=== PATIENT | female | born 1935 | race Caucasian/White ===

== ENCOUNTER 2017-01-20 08:01 | Outpatient (CLI) | payer MEDICARE, OTHER ==
[~2017-01-20] VITALS: Ht 158.8 cm; Wt 83.9 kg
[2017-01-20] VITALS (11 sets, daily range): BP systolic 139–163; BP diastolic 67–79
[~2017-01-20 08:01] MED LIST: AMIT10TA PO; ASPI-482 PO; ATOR10TA PO; DESL5TAB PO; DILT180C2 PO; LEVO100T PO; LOSA25TA4 PO; METF500T4 PO; METO100T11 PO; MULT-245 PO; SPIR25TA3 PO; UBID1CAP23 PO
[2017-01-20 08:27] LABS: BASO % 0 % (0-3); EOS % 2 % (0-3); HEMOGLOBIN 13.9 g/dL (12.0-15.5); LYMPH # 2.6 x10^3/uL (1.0-4.8); LYMPH % 34 % (24-48); MEAN CORPUSCULAR HEMOGLOBIN 28 pg (25-35); MEAN CORPUSCULAR HGB CONC 34 g/dL (31-37); MEAN CORPUSCULAR VOLUME 82 fL (79-100); MONO % 14 % (0-9); NEUT % 49 % (31-73); PLATELET COUNT 256 x10^3/uL (140-400); RED CELL DISTRIBUTION WIDTH 14.7 % (11.5-14.5); WHITE BLOOD COUNT 7.7 x10^3/uL (4.0-11.0)
[2017-01-20] MEDS ORDERED: TRAM50TA PO (08:29)
[2017-01-20] MEDS ORDERED: DIAZ2TAB PO (08:29)
[2017-01-20] MEDS ORDERED: ACET650T10 PO (08:29)
[2017-01-20] MEDS ORDERED: GADOBUTROL 7.5 MMOL/7.5 ML VIAL ONE (08:35)
[2017-01-20] MEDS ORDERED: LIDOCAINE 1% / SOD BICARB 8.4% 20 ML VIAL. IJ ONE ×2 (08:35→09:45)
[2017-01-20 08:39] LABS: CALCIUM 9.4 mg/dL (8.5-10.1); CREATININE 0.9 mg/dL (0.6-1.0); GFR 60.1; INR 1.1 (0.8-1.1); POTASSIUM 4.4 mmol/L (3.5-5.1); PROTHROMBIN TIME PATIENT 13.2 SEC (11.7-14.0)
[2017-01-20 08:45] LABS: ALBUMIN 3.8 g/dL (3.4-5.0); ALBUMIN/GLOBULIN RATIO 0.9 (1.0-1.7); TOTAL BILIRUBIN 0.5 mg/dL (0.2-1.0); TOTAL PROTEIN 8.1 g/dL (6.4-8.2)
[2017-01-20] MEDS ORDERED: MIDAZOLAM HCL/PF 2 MG/2 ML VIAL. ONE (09:26)
[2017-01-20] MEDS ORDERED: GADOBUTROL 7.5 MMOL/7.5 ML VIAL IV ONE (09:45)
[2017-01-20] MEDS ORDERED: MIDAZOLAM HCL/PF 2 MG/2 ML VIAL. IV ONE (09:45)
--- NOTE | 2017-01-20 10:26 | PDOC1 ---
History and Physical Date of Procedure Date of Admission 01/20/[address] guided right renal cyst aspiration Indication Indication 81 YO female with right renal cyst, which, by history is enlarging. CT guided aspiration/bx has been requested by PCP to exclude cystic renal neoplasm. Past Medical History Past Medical History See Nursing Pre procedure PMH Past Surgical History Past Surgical History See Nursing Pre procedure PSH Current Medications Current Medications Current Medications Cefazolin Sodium 50 ml @ 100 mls/hr 1X ONCE IV ; Start 01/20/17 at 08:15; Stop 01/20/17 at 08:44; Status DC Gadobutrol (Gadavist) 7.5 mmol STK-MED ONCE .ROUTE ; Start 01/20/17 at 08:35; Stop 01/20/17 at 08:36; Status DC Lidocaine/Sodium Bicarbonate (Buffered Lidocaine 1%) 20 ml STK-MED ONCE IJ ; Start 01/20/17 at 08:35; Stop 01/20/17 at 08:36; Status DC Midazolam HCl (Versed) 2 mg STK-MED ONCE .ROUTE ; Start 01/20/17 at 09:26; Stop 01/20/17 at 09:27; Status DC Lidocaine/Sodium Bicarbonate (Buffered Lidocaine 1%) 20 ml 1X ONCE IJ Last administered on 01/20/17 10:12; Start 01/20/17 at 09:45; Stop 01/20/17 at 09:46; Status DC Midazolam HCl (Versed) 2 mg 1X ONCE IV Last administered on 01/20/17t 10:12; Start 01/20/17 at 09:45; Stop 01/20/17 at 09:46; Status DC Gadobutrol (Gadavist) 7.5 mmol 1X ONCE IV Last administered on 01/20/17 10:12 ; Start 01/20/17 at 09:45; Stop 01/20/17 at 09:46; Status DC Active Scripts Active Reported Arthritis Pain Reliever (Acetaminophen) 650 Mg Tablet.er 650 Mg PO PRN Valium (Diazepam) 2 Mg Tablet 2 Mg PO PRN PRN Tramadol Hcl 50 Mg Tablet 25 Mg PO DAILY PRN Co Q-10 100 Mg Softgel (Ubidecarenone/Vit E Acetate) 1 Each Capsule 1 Each PO Multi Vitamin Daily (Multivitamin) 1 Each Tablet 1 Each PO Aspir 81 (Aspirin) 81 Mg Tablet.dr 162 Mg PO DAILY Losartan Potassium 25 Mg Tablet 25 Mg PO DAILY PRN Cardizem Cd (Diltiazem Hcl) 180 Mg Cap.er.24h 180 Mg PO DAILY Clarinex (Desloratadine) 5 Mg Tablet 5 Mg PO DAILY Metformin Hcl 500 Mg Tablet 500 Mg PO BIDWMEALS Amitriptyline Hcl 10 Mg Tablet 5 Mg PO HS Lipitor (Atorvastatin Calcium) 10 Mg Tablet 10 Mg PO DAILY Synthroid (Levothyroxine Sodium) 100 Mcg Tablet 100 Mcg PO DAILYAC Metoprolol Succinate ( Xl ) (Metoprolol Succinate) 100 Mg Tab.er.24h 50 Mg PO DAILY Allergies Allergies: Coded Allergies: levofloxacin (Unverified Allergy, Severe, ANAPHYLAXIS, 01/20/17) codeine (Verified Allergy, Unknown, 01/20/17) iodine (Unverified Adverse Reaction, Mild, anxiety, 01/20/17) Physical Exam Vital Signs Vital Signs Date Time Temp Pulse Resp B/P (MAP) Pulse Ox O2 Delivery O2 Flow Rate FiO2 01/20/17 10:07 58 18 100 Room Air 01/20/17 10:04 2.0 01/20/17 09:08 97.7 144/71 (95) 97.7 Lungs: Clear to auscultation Heart: Regular rate Psych/Mental Status: Mental status NL Diagnostic Data/Imaging Images [facility] CT studies from 07/03/16 and 12/25/16 personally reviewed. Large right renal cyst confirmed, with smooth, imperceptible howard without nodularity or calcification and with homogeneous hypodensity. Only minimal if any increase in size over 6 months. Assessment Assessment Large right renal cyst, with imaging characteristics most c/w simple, benign cyst. Given h/o fairly rapid enlargement, image guided sampling has been requested by PCP to exclude cystic neoplasm. Problems: Plan Plan CT guided right renal cyst aspiration---cyst fluid to cytology. No mural irregularity/nodularity/calcification to indicate cyst wall bx. WILLIAMS DUVAL MD Jan 20, 2017 10:26
--- NOTE | 2017-01-20 10:47 | PDOC ---
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 However, by history, this lesion has shown significant enlargement---therefore cyst aspiration/bx has been requested by PCP to exclude cystic neoplasm. Post-Procedure Diagnosis Post-Procedure Diagnosis Cyst aspiration/contrast injection suggests simple cyst (smooth imperceptible howard, without mural nodularity/calcification, and with homogeneous hypodensity) . No communication to right renal collecting system. Procedure Performed Procedure Performed CT guided right renal cyst aspiration, with gadolinium contrast injection. Type of Anesthesia Type of Anesthesia Local + IV versed anxiolysis----no moderate sedation. Estimated Blood Loss EBL: Trace Specimens Specimans 100 cc straw-clear right renal cyst fluid aspirated---sample to lab for cytology. Condition of Patient Condition of Patient Stable. No apparent compication. Disposition Disposition Discharge home from [facility] post 1 hr recovery, if no problems. F/u with referring PCP. Full report to follow. WILLIAMS DUVAL MD Jan 20, 2017 10:47
--- NOTE | 2017-01-20 16:21 | RAD ---
CT-guided aspiration of right renal cyst Indication: 81-year-old female with an asymptomatic large right renal cyst which has, by history, shown significant recent interval increase in size. Image guided aspiration/biopsy has been requested by primary care physician to exclude the possibility of cystic neoplasm. Anesthesia: Local plus IV Versed anxiolysis only. No moderate sedation was utilized. Consent: The procedure was explained in its entirety to the patient and/or the patient's designated sales training representative by a member of the treatment team. This included a discussion of risks and benefits and acceptable alternatives to the procedure, as well as expected consequences of no treatment at all. Discussion of risks included, but was not limited to, those that are most frequent and those that are rare, but possibly severe or life-threatening, as well as the possibility of unforeseen complications. Procedure: Informed consent was obtained from the patient. She was placed supine on the CT scanner. Preliminary noncontrast CT images were obtained through kidneys. Those images confirmed the presence of a well-defined, homogeneously hypodense, cyst projecting laterally from mid region right kidney. The cyst has thin, imperceptible howard, without mural nodularity and without mural calcification. When compared to the previous [facility] CT done 07/03/2016, there has been little, if any interval increase in size in the cyst, which measures approximately 7 cm in maximum diameter. A skin site suitable for CT-guided right renal cyst aspiration was selected and marked along the lateral aspect of mid right abdomen. That area was prepped and draped in the usual sterile fashion. 1 mg Versed was given IV, for anxiolysis. Using aseptic technique, local anesthesia, and CT guidance, a small micropuncture sheath was successfully introduced into the right renal cyst. Approximately 75 cc of straw-clear cyst fluid was aspirated, a sample which was submitted to cytology. 50 cc of very dilute gadolinium was then injected through the micropuncture sheath into the right renal cyst, and CT images were repeated. Those images revealed homogeneous opacification of the renal cyst, without demonstration of mural thickening or nodularity. There was no demonstration of gadolinium extending from the renal cyst into right renal collecting system. Approximately 50 cc of cyst fluid and a dilute gadolinium was then aspirated. This resulted in partial decompression of the renal cyst. Complete cyst aspiration was not considered mandatory in this asymptomatic lesion. Patient tolerated the procedure well without apparent complication. Impression: Successful, uneventful CT-guided aspiration of a right renal cyst, as described. Although, by imaging criteria, this lesion appears to represent a simple, benign cyst, aspirated fluid was submitted to cytology. Injection of dilute gadolinium into the cyst failed to demonstrate communication with right renal collecting system. PQRS Compliance Statement: One or more of the following individualized dose reduction techniques was utilized for this procedure: 1. Automated exposure control. 2. Adjustment of MA and/or KV according to patient size. 3. Iterative reconstruction technique.
--- NOTE | 2017-01-21 10:32 | PATHOLOGY ---
CYTOPATHOLOGY REPORT CLINICAL HISTORY: Right renal cyst. SPECIMEN(S) RECEIVED: A.Needle aspiration, Right renal cyst FINAL DIAGNOSIS: Fine needle aspiration, right renal cyst: - Consistent with cystic contents. Poorly cellular specimen revealing few scattered histiocytes and some bacteria. PATHOLOGIST: Hermelindo Kong M.D. REPORT ELECTRONICALLY SIGNED BY: Hermelindo Kong M.D. DATE/TIME: 01/21/2017 10:31 GROSS PATHOLOGY: A. Needle aspiration, Right renal cyst: The specimen is labeled "Luna Hernandez". Thirty-five mL of clear yellow fluid unfixed from the needle rinse is also submitted and one ThinPrep slide and a cell block were prepared from this material. (clt 01.20.2017) INFANTRY ASSAULTMAN(S): SHAHRIAR Mcbride([facility]) INITIAL CPT CODE(S): A; 19356, 87426 Professional services performed [place] [facility] [address] Technical services performed by [facility] at [address] [place] [address], [address], [place] [address]. PATIENT: LUNA HERNANDEZ /AGE: 702/27/1935 (Age: 81) SEX: F PATIENT #: [id number] ALT CASE #: SPECIMEN COLLECTION DATE: 01/20/2017 SPECIMEN RECEIVED DATE: 01/20/[address] [facility] [address] [place] [address], [address] [place] [address] PHONE: [phone] DIRECTOR: Ron Barrera M.D. * * * END OF REPORT * * *
== END 2017-01-20 11:20 | disposition home or self-care (01) ==
LOC: INTRAD 08:01
PROVIDERS: ATTEND Family Medicine
DX: N28.1 Cyst of kidney, acquired (principal); I48.91 Unspecified atrial fibrillation; E11.9 Type 2 diabetes mellitus without complications; Z98.41 Cataract extraction status, right eye; Z98.42 Cataract extraction status, left eye; E78.00 Pure hypercholesterolemia, unspecified; Z90.49 Acquired absence of other specified parts of digestive tract; Z90.710 Acquired absence of both cervix and uterus; Z96.653 Presence of artificial knee joint, bilateral
CPT/HCPCS: 10022; 36415; 77012; 80053; 85027; 85610; 88173; 88305; C1892; J2250; A9585

== ENCOUNTER → 2017-07-24 | Outpatient (CLI) | payer MEDICARE, OTHER ==
[2017-01-20 11:05] VITALS: BP 147/76
[~2017-07-24] MED LIST changes: +ACET650T10 PO; +DIAZ2TAB PO; +METO-247 PO; -METO100T11 PO; +TRAM50TA PO; -UBID1CAP23 PO; +UBID1CAP41 PO
--- NOTE | 2017-07-24 16:46 | KCIC ---
MRI of the thoracic spine without contrast 07/24/2017 CLINICAL HISTORY: Chronic mid back pain. TECHNIQUE: Unenhanced T1-weighted, T2-weighted and inversion recovery sagittal and T1-weighted and T2-weighted axial images of the thoracic spine were obtained. FINDINGS: Mild to moderate S-shaped curvature of the thoracolumbar spine is seen. Degenerative signal changes are seen involving all the disks of the thoracic spine. Degenerative signal changes are seen within the marrow surrounding these discs. The thoracic spinal cord is normal in morphology, position, and signal characteristics. Degenerative changes are seen involving the thoracic disc spaces consisting of minimal to mild generalized disc bulges along with small superimposed focal disc protrusions and degenerative changes involving the facet joints. These findings do not result in areas of significant central spinal canal or neural foraminal stenosis. IMPRESSION: Degenerative changes are seen involving the thoracic spine. These findings do not result in areas of significant central spinal canal or neural foraminal stenosis. Electronically signed by: Jason Fontenot MD (07/24/2017 4:43 PM) [facility]-[id number]
--- NOTE | 2017-07-24 16:57 | KCIC ---
MRI of the lumbar spine without contrast 07/24/2017 CLINICAL HISTORY: Chronic low back pain which intermittently radiates to the right lower quadrant and left leg. TECHNIQUE: Unenhanced T1-weighted and T2-weighted sagittal and axial and inversion recovery sagittal images of the lumbar spine were obtained. FINDINGS: Comparison study is dated 06/25/2016. The patient appears to have transitional vertebral anatomy. For the purposes of this dictation the transitional vertebral segment will be referred to by the letter T. A hypoplastic disc is seen at T-S1. Mild to moderate S-shaped curvature of the thoracolumbar spine is seen. Mild anterolisthesis of L5 in relation to T is noted. Degenerative signal changes are seen involving all of the disks of the lumbar spine. Degenerative signal changes are seen within the marrow surrounding these discs. Loss of height of the L3-4, L4-5 and L5-T discs is noted. The conus medullaris is normal morphology, position, and signal characteristics. At the L1-2 and L2-3 disc spaces there are mild to moderate generalized disc bulges. Degenerative changes are seen involving the facet joints bilaterally. There is mild to moderate ligamentum flavum hypertrophy bilaterally. These findings when combined do not result in significant central spinal canal or neural foraminal stenosis. At the L3-4 disc space there is a mild to moderate generalized disc bulge. This is eccentric to the right. Degenerative changes are seen involving the facet joints bilaterally. There is moderate ligamentum flavum hypertrophy bilaterally. There is prominence of the posterior epidural fat. These findings when combined result in mild central spinal canal stenosis. Mild right neural foraminal stenosis is seen. The left neural foramen is patent. At the L4-5 disc space there is a mild generalized disc bulge. Degenerative changes are seen involving the facet joints bilaterally. There is moderate ligamentum flavum hypertrophy bilaterally. These findings when combined result in mild to moderate central spinal canal stenosis. Mild bilateral neural foraminal stenosis is seen. At the L5-T disc space there is a mild generalized disc bulge. Degenerative changes are seen involving the facet joints bilaterally. These findings when combined do not result in significant central spinal canal stenosis. Mild bilateral neural foraminal stenosis is seen. At the T-S1 disc space there is a minimal generalized disc bulge. Degenerative changes are seen involving the facet joints bilaterally. These findings do not result in significant central spinal canal or neural foraminal stenosis. Since the previous examination there has been no significant interval change. IMPRESSION: The changes of degenerative disc disease are seen throughout the lumbar spine. These findings result in mild central spinal canal stenosis at L3-4 and mild to moderate central spinal canal stenosis at L4-5. Mild right neural foraminal stenosis is seen at L3-4. Mild bilateral neural foraminal stenosis is seen at L4-5 and L5 T. Electronically signed by: Jason Fontenot MD (07/24/2017 4:54 PM) [facility]-KCIC1
== END | disposition home or self-care (01) ==
LOC: KCIC MRI 11:45
PROVIDERS: ATTEND Family Medicine
DX: M47.895 Other spondylosis, thoracolumbar region (principal); M47.894 Other spondylosis, thoracic region; M48.061 Spinal stenosis, lumbar region without neurogenic claudication; M51.36 Other intervertebral disc degeneration, lumbar region
CPT/HCPCS: 72146; 72148

== ENCOUNTER → 2019-03-09 | Outpatient (CLI) | payer MEDICARE, OTHER ==
[2017-01-20 11:05] VITALS: BP 147/76
[~2019-03-09] MED LIST changes: +BARIUM SULFATE 2.1% 450 ML SUSP PO ONE; -LOSA25TA4 PO; +LOSA25TA54 PO; +METF500T16 PO; -METF500T4 PO; -SPIR25TA3 PO; +SPIR25TA5 PO
--- NOTE | 2019-03-09 15:07 | KCIC ---
Examination: CT ABD PEL W/ORAL CONTRST ONLY History: Epigastric pain, hernia repair 3 times. Constipation and bloating. Comparison/Correlation: None Findings: Axial images of the abdomen and pelvis were obtained following oral contrast. Sagittal and coronal reformatted images provided. Visualized lung bases are unremarkable. Small hiatal hernia is present. Contrast is noted within the hiatal hernia as well as the distal esophagus and may represent reflux. Liver, spleen, pancreas, adrenal glands, and left kidney are unremarkable. Cholecystectomy evident. Right renal interpolar region low-attenuation structure measuring 1 cm diameter is present. This is at the level of a previously seen large cyst. No radiopaque collecting system calculi. Urinary bladder is unremarkable. Diverticulosis of the colon is present without findings of acute inflammation. No ascites or pelvic free fluid. Multilevel degenerative space narrowing throughout the spine noted. Facet joint degenerative changes of the lumbar spine are noted. Minimal anterolisthesis of L4 relation to L5 noted. Levo convexity of the thoracolumbar spine noted. Hysterectomy noted. Impression: Hiatal hernia. Contrast within the distal esophagus which may represent gastroesophageal reflux. Diverticulosis. No acute inflammation. PQRS Compliance Statement: One or more of the following individualized dose reduction techniques were utilized for this examination: 1. Automated exposure control 2. Adjustment of the mA and/or kV according to patient size 3. Use of iterative reconstruction technique Electronically signed by: Rafael Garcia MD (03/09/2019 3:04 PM) [id number]
--- NOTE | 2019-03-09 15:42 | KCIC ---
MR of the left foot HISTORY: Left foot mass. TECHNIQUE: Axial and sagittal images were obtained. The patient was unable to complete the exam and therefore coronal images were not obtained. FINDINGS: Surface marker is placed at the area of concern. Study is centered at the midfoot. Moderate motion degradation. Degenerative changes are identified throughout the visualized foot. Lisfranc ligament complex is without evidence of gross acute disruption at least as seen on the axial images. No definite acute fracture or aggressive bone destruction. No large joint effusion. The area of concern as indicated by the marker is located superior to the third tarsometatarsal joint. Evaluation is limited without the coronal images but no definite soft tissue mass. There are large dorsal osteophytes at the second tarsometatarsal joint which could result in a palpable lesion. No large joint effusion. No abnormal soft tissue fluid collection. IMPRESSION: 1. Exam is limited by motion as well is the lack of complete imaging. 2. Degenerative changes, most severe at the tarsometatarsal joint. 3. Limited evaluation of the area of concern without coronal images, no definite soft tissue mass but there are large dorsal osteophytes at the second tarsometatarsal joint which could result in a palpable lesion. Electronically signed by: Umberto Miller MD (03/09/2019 3:40 PM) [facility]
== END | disposition home or self-care (01) ==
LOC: KCIC CT 12:49
PROVIDERS: ATTEND Family Medicine
DX: K57.30 Diverticulosis of large intestine without perforation or abscess without bleeding (principal); K44.9 Diaphragmatic hernia without obstruction or gangrene; M19.072 Primary osteoarthritis, left ankle and foot; M25.775 Osteophyte, left foot; M47.816 Spondylosis without myelopathy or radiculopathy, lumbar region; M43.16 Spondylolisthesis, lumbar region; M48.00 Spinal stenosis, site unspecified; Z90.710 Acquired absence of both cervix and uterus; Z90.49 Acquired absence of other specified parts of digestive tract
CPT/HCPCS: 73718; 74176